=== PATIENT | female | born 1985 | race African-American/Black ===

== ENCOUNTER → 2020-10-13 | Outpatient (CLI) | payer OTHER ==
[~2020-10-13] MED LIST: NO HOME MEDICATIONS; NORCO 325 MG-51 TAB PO
== END ==
LOC: MHCPAIN 10:24
DX: M47.817 Spondylosis without myelopathy or radiculopathy, lumbosacral region (principal); M53.3 Sacrococcygeal disorders, not elsewhere classified; G89.29 Other chronic pain; M54.5 Low back pain
CPT/HCPCS: G0463

== ENCOUNTER → 2020-10-15 | Outpatient (CLI) | payer OTHER | LOC: MHCPAIN 08:18 | DX: M47.817 Spondylosis without myelopathy or radiculopathy, lumbosacral region (principal); M54.5 Low back pain ==

== ENCOUNTER → 2020-10-21 | Outpatient (CLI) | payer OTHER | LOC: MHCPAIN 13:29 | DX: M47.816 Spondylosis without myelopathy or radiculopathy, lumbar region (principal); M53.3 Sacrococcygeal disorders, not elsewhere classified; M54.5 Low back pain; G89.29 Other chronic pain | CPT/HCPCS: G0463 ==

== ENCOUNTER → 2020-10-22 | Outpatient (CLI) | payer OTHER | LOC: MHCPAIN 08:03 | DX: M47.817 Spondylosis without myelopathy or radiculopathy, lumbosacral region (principal); M54.5 Low back pain ==

== ENCOUNTER → 2020-11-02 | Outpatient (CLI) | payer OTHER | LOC: MHCPAIN 09:22 | DX: M47.817 Spondylosis without myelopathy or radiculopathy, lumbosacral region (principal); M53.3 Sacrococcygeal disorders, not elsewhere classified; G89.29 Other chronic pain; M54.5 Low back pain | CPT/HCPCS: G0463 ==

== ENCOUNTER → 2022-03-14 | Outpatient (CLI) | payer OTHER | LOC: COL.RAD 12:28 | DX: Z31.41 Encounter for fertility testing (principal) | CPT/HCPCS: Q9967 ==